=== PATIENT | male | born 1980 | race African-American/Black ===

== ENCOUNTER 2017-09-10 14:18 | Emergency (ER) | payer MEDICAID | END 2017-09-10 18:38 | disposition home or self-care (01) | LOC: EDSEX 14:18 → D.ER 14:18 | DX: S27.818A Other injury of esophagus (thoracic part), initial encounter (principal); X58.XXXA Exposure to other specified factors, initial encounter; Y93.89 Activity, other specified; Y92.019 Unspecified place in single-family (private) house as the place of occurrence of the external cause; I10 Essential (primary) hypertension; E78.5 Hyperlipidemia, unspecified ==

== ENCOUNTER 2017-09-12 13:09 | Emergency (ER) | payer MEDICAID | END 2017-09-12 16:52 | disposition home or self-care (01) | LOC: D.ER 13:09 | DX: S27.818A Other injury of esophagus (thoracic part), initial encounter (principal); X58.XXXA Exposure to other specified factors, initial encounter; Y93.9 Activity, unspecified; Y92.019 Unspecified place in single-family (private) house as the place of occurrence of the external cause; F45.8 Other somatoform disorders; I10 Essential (primary) hypertension ==

== ENCOUNTER 2017-09-29 10:06 | Emergency (ER) | payer MEDICAID | END 2017-09-29 12:18 | disposition home or self-care (01) | LOC: D.ER 10:06 | DX: R09.89 Other specified symptoms and signs involving the circulatory and respiratory systems (principal); I10 Essential (primary) hypertension ==

== ENCOUNTER 2017-10-20 08:02 | Emergency (ER) | payer MEDICAID | END 2017-10-20 09:03 | disposition home or self-care (01) | LOC: D.ER 08:02 | DX: S27.818A Other injury of esophagus (thoracic part), initial encounter (principal); X58.XXXA Exposure to other specified factors, initial encounter; Y93.89 Activity, other specified; Y92.89 Other specified places as the place of occurrence of the external cause ==

== ENCOUNTER 2021-01-02 20:06 | Emergency (ER) | payer BC ==
[~2021-01-02] VITALS: Ht 186.7 cm; Wt 125.0 kg
[2021-01-02 20:12] VITALS: Ht 186.7 cm; Wt 125.0 kg
[2021-01-02] MEDS ORDERED: METOPROLOL TART25 MG PO (20:14)
[2021-01-02] MEDS ORDERED: NORVASC10 MG PO (20:14)
[2021-01-02 22:34] VITALS: BP 148/92
== END 2021-01-02 22:00 | disposition home or self-care (01) ==
LOC: D.ER 20:06
DX: T63.481A Toxic effect of venom of other arthropod, accidental (unintentional), initial encounter (principal); I10 Essential (primary) hypertension